=== PATIENT | male | born 1940 | race African-American/Black ===

== ENCOUNTER 2016-07-11 17:58 | Emergency (ER) | payer OTHER | END 2016-07-11 21:00 | disposition home or self-care (01) | LOC: CFTX 17:58 → CED 17:58 → CFTX 20:03 → CED 20:03 → CFTX 21:00 | DX: S29.012A Strain of muscle and tendon of back wall of thorax, initial encounter (principal); I10 Essential (primary) hypertension; X58.XXXA Exposure to other specified factors, initial encounter | CPT/HCPCS: 99282 ==